=== PATIENT | male | born 1985 | race Caucasian/White ===

== ENCOUNTER → 2020-10-16 | Outpatient (CLI) | payer OTHER ==
--- NOTE | 2020-10-16 16:58 | KCIC ---
EXAMINATION: MRI LEFT LOWER EXTREMITY JOINT WITHOUT INDICATIONS: Left peroneal nerve palsy after compression to the knee for an extended period. TECHNIQUE: Multiplanar multisequence MRI of the left knee was obtained without contrast. COMPARISON: None. FINDINGS: MENISCI: The medial and lateral menisci are intact. LIGAMENTS: The anterior and posterior cruciate ligaments are intact. The medial collateral ligament and lateral collateral ligament complex are intact. EXTENSOR MECHANISM: The quadriceps and patellar tendons are intact. Fat pads are normal. Retinacula are intact. BONES AND CARTILAGE: No acute fracture. Marrow signal is normal. Articular cartilage is intact. OTHER: Small joint effusion. Trace Vincent cyst. Remaining tendons are intact. Muscles are normal in s ignal and bulk. The common peroneal nerve has very mild increased T2 signal as it courses around the fibular head without enlargement or surrounding edema. There is no cyst or mass along the course of t he nerve. The tibial nerve is normal in appearance. IMPRESSION: Very mild increased T2 signal of the common peroneal nerve as it courses around the fibu lar head without enlargement of the nerve. This could reflect very mild neuritis. There is no soft ti ssue mass or fluid collection along the visualized course of the nerve, and no denervation edema in t he muscles. Electronically signed by: Latesha Johnson MD (10/16/2020 4:56 PM) [id number]
== END ==
LOC: KCIC MRI 15:09
PROVIDERS: ATTEND Physician Assistant
DX: G57.32 Lesion of lateral popliteal nerve, left lower limb (principal); G58.8 Other specified mononeuropathies
CPT/HCPCS: 73721